=== PATIENT | female | born 1990 | race Two or more races ===

== ENCOUNTER → 2022-10-06 | Outpatient (REF) | payer MEDICAID | LOC: M PLALAB 14:53 | PROVIDERS: ATTEND Advanced Practice Midwife | DX: Z53.9 Procedure and treatment not carried out, unspecified reason (principal) ==

== ENCOUNTER → 2022-10-06 | Outpatient (CLI) | payer MEDICAID, OTHER ==
[2022-10-06 17:44] LABS: HEMATOCRIT 40.5 % (36.0-47.0); HEMOGLOBIN 13.4 g/dl (12.0-15.5); MEAN CORPUSCULAR HEMOGLOBIN 27.5 pg (27.0-33.0); MEAN CORPUSCULAR HGB CONC 33.1 g/dl (32.0-36.5); MEAN CORPUSCULAR VOLUME 83.2 fl (80.0-96.0); PLATELET COUNT, AUTOMATED 287 10^3/uL (150-450); RED BLOOD COUNT 4.87 10^6/uL (4.00-5.40); WHITE BLOOD COUNT 7.5 10^3/uL (4.0-10.0)
[2022-10-06 18:09] LABS: CREATININE,RANDOM URINE 43.7 MG/DL; URIC ACID 4.9 MG/DL (3.1-7.8)
[2022-10-06 18:11] LABS: LDH LACTATE DEHYDROGENASE 123 U/L (120-246)
[2022-10-06 18:12] LABS: ALT/SGPT 28 U/L (7.0-40); AST/SGOT 11 U/L (<34); BILIRUBIN,TOTAL 0.3 MG/DL (0.3-1.2); CREATININE FOR GFR 0.43 MG/DL (0.55-1.30); GLOMERULAR FILTRATION RATE > 60.0 (>60)
[2022-10-06 18:39] LABS: HIV 1&2 SCREEN CENTAUR NEGATIVE (NEGATIVE)
[2022-10-06 18:47] LABS: HEPATITIS C VIRUS ABY INDEX 0.1 INDEX (<0.8)
[2022-10-06 19:02] LABS: GC DNA AMPLIFICATION NEGATIVE (NEGATIVE)
[2022-10-06 19:27] LABS: HEMOGLOBIN A1c 9.9 % (4.0-6.0)
== END ==
LOC: M PLALAB 15:14
PROVIDERS: ATTEND Advanced Practice Midwife
DX: Z34.81 Encounter for supervision of other normal pregnancy, first trimester (principal); Z3A.00 Weeks of gestation of pregnancy not specified

== ENCOUNTER 2022-10-20 13:21 | Emergency (ER) | payer OTHER ==
[~2022-10-20] VITALS: Ht 160 cm; Wt 63.1 kg
[2022-10-20] MEDS ORDERED: METF-817 PO (14:02)
[2022-10-20 17:19] LABS: BASO % 0.2 % (0.0-1.0); EOS # 0.1 10^3/uL (0.0-0.5); EOS % 0.9 % (0.0-3.0); HEMATOCRIT 37.7 % (36.0-47.0); HEMOGLOBIN 12.3 g/dl (12.0-15.5); LYMPH # 2.5 10^3/uL (1.5-5.0); LYMPH % 30.2 % (24.0-44.0); MEAN CORPUSCULAR HEMOGLOBIN 27.3 pg (27.0-33.0); MEAN CORPUSCULAR HGB CONC 32.6 g/dl (32.0-36.5); MEAN CORPUSCULAR VOLUME 83.6 fl (80.0-96.0); MONO # 0.4 10^3/uL (0.0-0.8); MONO % 4.5 % (2.0-8.0); NEUTROPHILS # 5.3 10^3/uL (1.5-8.5); NEUTROPHILS % 63.8 % (36.0-66.0); PLATELET COUNT, AUTOMATED 255 10^3/uL (150-450); RED BLOOD COUNT 4.51 10^6/uL (4.00-5.40); WHITE BLOOD COUNT 8.2 10^3/uL (4.0-10.0)
[2022-10-20 17:20] LABS: APPEARANCE, URINE MANUAL HAZY (CLEAR); COLOR, URINE MANUAL YELLOW (YELLOW)
[2022-10-20 17:21] LABS: BILIRUBIN, URINE MANUAL NEGATIVE (NEGATIVE); BLOOD URINE MANUAL TRACE (NEGATIVE); GLUCOSE, URINE (UA) MANUAL NEGATIVE (NEGATIVE); KETONE, URINE MANUAL 1+ mg/dL (NEGATIVE); LEUKOCYTE ESTERASE, URINE MAN POSITIVE (NEGATIVE); NITRITE, URINE MANUAL NEGATIVE (NEGATIVE); PH,URINE MAN 5.5 UNITS (5.0 - 7.0); PROTEIN, URINE MANUAL NEGATIVE (NEGATIVE); UROBILINOGEN, URINE MANUAL NORMAL (NORMAL)
[2022-10-20 17:28] LABS: BACTERIA, URINE LARGE AMOUNT; HYALINE CAST, URINE NONE SEEN /lpf (0-1); SQUAMOUS EPITHELIAL CELL URINE LARGE AMOUNT /hpf (SMALL AMT); WBC, URINE 20-30 /hpf (0-3)
[2022-10-20] MEDS ORDERED: MACR100C43 PO (17:56)
[2022-10-20] MEDS ORDERED: MM S100C PO (17:57)
[2022-10-20] MEDS ORDERED: PYRI1TAB5 PO (18:02)
[2022-10-20] MEDS ORDERED: NITR-67 PO (18:03)
[2022-10-20] MEDS ORDERED: NITROFURANTOIN (MACROBID) 100 MG CAP PO ONE (18:05)
[2022-10-20 18:23] VITALS: BP 103/59
== END 2022-10-20 19:36 | disposition home or self-care (01) ==
LOC: M ED 16:44
DX: O23.41 Unspecified infection of urinary tract in pregnancy, first trimester (principal); O26.891 Other specified pregnancy related conditions, first trimester; Z3A.12 12 weeks gestation of pregnancy; O24.911 Unspecified diabetes mellitus in pregnancy, first trimester; Z87.59 Personal history of other complications of pregnancy, childbirth and the puerperium

== ENCOUNTER 2022-10-28 19:14 | Emergency (ER) | payer OTHER ==
[~2022-10-28] VITALS: Ht 154.9 cm; Wt 64.2 kg
[2022-10-28 19:14] VITALS: BP 120/71
[~2022-10-28 19:14] MED LIST: MACR100C43 PO; METF-817 PO; MM S100C PO; NITR-67 PO; PYRI1TAB5 PO
[2022-10-28 21:11] LABS: BASO % 0.1 % (0.0-1.0); EOS # 0.1 10^3/uL (0.0-0.5); EOS % 1.3 % (0.0-3.0); HEMATOCRIT 33.7 % (36.0-47.0); HEMOGLOBIN 11.4 g/dl (12.0-15.5); MEAN CORPUSCULAR HEMOGLOBIN 27.9 pg (27.0-33.0); MEAN CORPUSCULAR HGB CONC 33.8 g/dl (32.0-36.5); MEAN CORPUSCULAR VOLUME 82.4 fl (80.0-96.0); MONO # 0.4 10^3/uL (0.0-0.8); MONO % 4.6 % (2.0-8.0); NEUTROPHILS # 5.5 10^3/uL (1.5-8.5); NEUTROPHILS % 60.8 % (36.0-66.0); PLATELET COUNT, AUTOMATED 236 10^3/uL (150-450); RED BLOOD COUNT 4.09 10^6/uL (4.00-5.40)
[2022-10-28 21:28] LABS: LIPASE 46 U/L (12-53)
[2022-10-28 21:30] LABS: ALBUMIN 3.5 G/DL (3.2-5.2); ALKALINE PHOSPHATASE 61 U/L (46-116); ALT/SGPT 18 U/L (7.0-40); AST/SGOT 12 U/L (<34); BILIRUBIN,DIRECT < 0.1 MG/DL (<0.4); BILIRUBIN,TOTAL 0.2 MG/DL (0.3-1.2); BLOOD UREA NITROGEN 9 MG/DL (9-23); CALCIUM LEVEL 9.4 MG/DL (8.5-10.1); CARBON DIOXIDE LEVEL 23 MMOL/L (20-31); CHLORIDE LEVEL 104 MMOL/L (98-107); CREATININE FOR GFR 0.44 MG/DL (0.55-1.30); GLOMERULAR FILTRATION RATE > 60.0 (>60); GLUCOSE, FASTING 110 MG/DL (60-100); POTASSIUM SERUM 3.8 MMOL/L (3.5-5.1); SODIUM LEVEL 138 MMOL/L (136-145)
[2022-10-28] MEDS ORDERED: MIRA3350 PO ×2 (23:11→23:15)
== END 2022-10-28 23:29 | disposition home or self-care (01) ==
LOC: M ED 19:14
DX: O99.612 Diseases of the digestive system complicating pregnancy, second trimester (principal); Z3A.14 14 weeks gestation of pregnancy; O24.912 Unspecified diabetes mellitus in pregnancy, second trimester; Z79.84 Long term (current) use of oral hypoglycemic drugs

== ENCOUNTER → 2022-11-08 | Outpatient (REF) | payer MEDICAID ==
[~2022-11-08] MED LIST changes: +MIRA3350 PO
[2022-11-08 15:59] LABS: HEMATOCRIT 32.1 % (36.0-47.0); HEMOGLOBIN 10.8 g/dl (12.0-15.5); MEAN CORPUSCULAR HEMOGLOBIN 28.3 pg (27.0-33.0); MEAN CORPUSCULAR HGB CONC 33.6 g/dl (32.0-36.5); MEAN CORPUSCULAR VOLUME 84.3 fl (80.0-96.0); PLATELET COUNT, AUTOMATED 253 10^3/uL (150-450); RED BLOOD COUNT 3.81 10^6/uL (4.00-5.40)
[2022-11-08 16:00] LABS: URIC ACID 4.7 MG/DL (3.1-7.8)
[2022-11-08 16:01] LABS: LDH LACTATE DEHYDROGENASE 104 U/L (120-246)
[2022-11-08 16:08] LABS: ALT/SGPT 13 U/L (7.0-40); AST/SGOT 13 U/L (<34); BILIRUBIN,TOTAL 0.3 MG/DL (0.3-1.2); CREATININE FOR GFR 0.41 MG/DL (0.55-1.30); GLOMERULAR FILTRATION RATE > 60.0 (>60)
[2022-11-08 16:38] LABS: HEMOGLOBIN A1c 7.8 % (4.0-6.0)
[2022-11-08 17:07] LABS: TOTAL PROTEIN,RANDOM URINE 51.4 MG/DL (0.0-14.0)
[2022-11-08 17:44] LABS: GC DNA AMPLIFICATION NEGATIVE (NEGATIVE)
[2022-11-08 21:01] LABS: HIV 1&2 SCREEN CENTAUR NEGATIVE (NEGATIVE)
== END ==
LOC: M SFHCPLAZ 13:06 → MERGE 13:06
PROVIDERS: ATTEND Advanced Practice Midwife
DX: Z34.81 Encounter for supervision of other normal pregnancy, first trimester (principal); Z3A.00 Weeks of gestation of pregnancy not specified

== ENCOUNTER → 2023-01-12 | Outpatient (CLI) | payer OTHER | LOC: M RAD 12:17 | PROVIDERS: ATTEND Specialist | DX: O24.912 Unspecified diabetes mellitus in pregnancy, second trimester (principal); Z3A.24 24 weeks gestation of pregnancy ==

== ENCOUNTER → 2023-03-30 | Outpatient (CLI) | payer MEDICAID, OTHER | LOC: M WHC 14:37 | PROVIDERS: ATTEND Obstetrics & Gynecology | DX: O24.319 Unspecified pre-existing diabetes mellitus in pregnancy, unspecified trimester (principal); Z3A.35 35 weeks gestation of pregnancy ==

== ENCOUNTER → 2023-04-07 | Outpatient (REF) | payer OTHER, MEDICAID | LOC: M SFHCWAGY 16:50 | PROVIDERS: ATTEND Obstetrics & Gynecology | DX: Z34.80 Encounter for supervision of other normal pregnancy, unspecified trimester (principal) ==

== ENCOUNTER 2023-04-18 16:30 | Inpatient (IN) | payer OTHER, MEDICAID ==
[~2023-04-18] VITALS: Ht 149.9 cm; Wt 69.7 kg
[~2023-04-18 16:30] MED LIST changes: +INSULIN; +INSULIN SQ; +LANTINJ4; +METF500T13 PO
[2023-04-18] MEDS ORDERED: OXYTOCIN DRIP 30 UNITS in IV 1 EA IV PRN (16:55)
[2023-04-18] MEDS ORDERED: LIDOCAINE 1% MDV 20ML VIAL INFIL PRN (16:55)
[2023-04-18] MEDS ORDERED: INSULIN LISPRO (NovoLOG) PER UNIT SC SCH (17:30)
[2023-04-18 17:53] VITALS: BP 118/85
[2023-04-18] MEDS: miSOPROStol 50MCG 1/2 TABLET PO SCH ×2 (18:06→22:12)
[2023-04-18 18:21] LABS: HEMATOCRIT 38.3 % (36.0-47.0); HEMOGLOBIN 12.7 g/dl (12.0-15.5); MEAN CORPUSCULAR HEMOGLOBIN 27.1 pg (27.0-33.0); MEAN CORPUSCULAR HGB CONC 33.2 g/dl (32.0-36.5); MEAN CORPUSCULAR VOLUME 81.7 fl (80.0-96.0); PLATELET COUNT, AUTOMATED 151 10^3/uL (150-450); RED BLOOD COUNT 4.69 10^6/uL (4.00-5.40); WHITE BLOOD COUNT 6.2 10^3/uL (4.0-10.0)
[2023-04-18] MEDS ORDERED: DEXTROSE 50% 50ML SYRINGE IV PRN (18:50)
[2023-04-18] MEDS ORDERED: GLUCOSE 4GM CHEW TABLET PO PRN (18:50)
[2023-04-18] MEDS ORDERED: GLUCAGON INJ 1MG VIAL SC PRN (18:50)
[2023-04-18 18:57] VITALS: BP 112/77
[2023-04-18 20:11] VITALS: BP 108/72
[2023-04-18 22:11] VITALS: BP 131/88
[2023-04-19] VITALS (7 sets, daily range): BP systolic 114–186; BP diastolic 74–107; O2SAT 98–100
[2023-04-19] MEDS ORDERED: NALBUPHINE HCL 10 MG/ML 1ML AMP IV ONE (01:10)
[2023-04-19] MEDS ORDERED: PENICILLIN G POTASSIUM 5 MU IV 5 MU in D5W MINI-BAG PLUS 100 ML IV STA (01:38)
[2023-04-19] MEDS ORDERED: IBUPROFEN 600MG TAB PO PRN (03:00)
[2023-04-19] MEDS ORDERED: DIBUCAINE 1% OINTMENT 30GM TOP PRN (03:00)
[2023-04-19] MEDS ORDERED: RHOGAM 300MCG (1500IU) INJ IM SCH (03:00)
[2023-04-19] MEDS ORDERED: DOCUSATE SODIUM 100MG CAPSULE PO PRN (03:00)
[2023-04-19] MEDS ORDERED: ACETAMINOPHEN 500 MG TAB PO PRN (03:00)
[2023-04-19] MEDS ORDERED: METHYLERGONOVINE MALEATE 0.2 MG TAB PO PRN (03:00)
[2023-04-19] MEDS: ACETAMINOPHEN TAB 650MG DOSE (2X325MG) PO PRN (03:38)
[2023-04-19] MEDS ORDERED: PEN G POT 3,000,000 UNIT/50 ML 3,000,000 UNIT in IV 1 EA IV SCH (06:00)
[2023-04-19] MEDS: IBUPROFEN 800 MG TAB PO PRN (06:02)
[2023-04-19] MEDS: PRENATAL VITAMINS CHEWABLE TABLET PO SCH (09:01)
[2023-04-19] MEDS: metFORMIN (GLUCOPHAGE) 500MG TAB PO SCH ×2 (16:44→20:47)
[2023-04-20 06:00] VITALS: BP 131/88; O2SAT 99
[2023-04-20] MEDS: PRENATAL VITAMINS CHEWABLE TABLET PO SCH (10:01)
[2023-04-20] MEDS: metFORMIN (GLUCOPHAGE) 500MG TAB PO SCH ×3 (10:02→21:50)
[2023-04-20 18:00] VITALS: BP 125/80; O2SAT 99
[2023-04-20 21:39] VITALS: BP 120/72; O2SAT 98
[2023-04-20] MEDS: ACETAMINOPHEN TAB 650MG DOSE (2X325MG) PO PRN (21:48)
[2023-04-21 06:00] VITALS: BP 112/77; O2SAT 100
[2023-04-21] MEDS: IBUPROFEN 800 MG TAB PO PRN (06:09)
[2023-04-21] MEDS: PRENATAL VITAMINS CHEWABLE TABLET PO SCH (08:17)
[2023-04-21] MEDS: metFORMIN (GLUCOPHAGE) 500MG TAB PO SCH (08:18)
[2023-04-21] MEDS ORDERED: MEASLES,MUMPS,RUBELLA VACCINE INJ (MMR-II) SC.IMMUN ONE (09:00)
[2023-04-21] MEDS ORDERED: SERTRALINE HCL 50 MG TAB PO SCH (09:00)
[2023-04-21] MEDS ORDERED: SERT50TA29 PO (14:08)
== END 2023-04-21 15:48 | disposition home or self-care (01) | DRG 560 ==
LOC: EEVIPCON 16:30 → M LDI 16:30 → M OBS 04-19 05:37
PROVIDERS: ADMIT Specialist; ATTEND Specialist
PROC: 3E0P7GC Introduction of Other Therapeutic Substance into Female Reproductive, Via Natural or Artificial Opening (ICD-10-PCS; 2023-04-18)
PROC: 10E0XZZ Delivery of Products of Conception, External Approach (ICD-10-PCS; principal; 2023-04-19)
PROC: 10907ZC Drainage of Amniotic Fluid, Therapeutic from Products of Conception, Via Natural or Artificial Opening (ICD-10-PCS; 2023-04-19)
DX: O24.12 Pre-existing type 2 diabetes mellitus, in childbirth (principal); O99.824 Streptococcus B carrier state complicating childbirth; O13.4 Gestational [pregnancy-induced] hypertension without significant proteinuria, complicating childbirth; Z3A.38 38 weeks gestation of pregnancy; Z79.4 Long term (current) use of insulin; Z37.0 Single live birth